=== PATIENT | female | born 1945 | race Caucasian/White ===

== ENCOUNTER → 2019-12-20 | Day surgery (SDC) | payer OTHER, MEDICARE ==
--- NOTE | 2019-12-22 13:40 | OP ---
DATE OF OPERATION: 12/20/2019 PREOPERATIVE DIAGNOSIS: Left breast mass 12 o'clock retroareolar. POSTOPERATIVE DIAGNOSIS: Left breast mass 12 o'clock retroareolar. PROCEDURE: Left breast ultrasound-guided core biopsy with clip placement. ANESTHESIA: Local. ATTENDING SURGEON: Liv Gold MD ESTIMATED BLOOD LOSS: Minimal. COMPLICATIONS: None. PROCEDURE: Patient was made aware of the risks and benefits of the procedure and consented. Under sterile conditions with 2% lidocaine for local anesthesia, a small armando was made in the skin. Using a 13-gauge suction biopsy device under ultrasound guidance multiple cores were obtained and submitted to Pathology. Likewise, under ultrasound guidance a bow tie clip was placed into the biopsy region. Well tolerated by patient. Steri-Strip and a sterile bandage were applied. Will contact her with the results. LIV GOLD M.D. CANDI/[id number]
--- NOTE | 2019-12-23 15:13 | PATH ---
Surgical Pathology Report Patient Name: JORY BORGES [facility]. Rec. #: [id number] /Age/Gender: 1945 (Age: 74) / F Account: [id number] Location: [facility] Taken: 12/20/2019 Received: 12/20/2019 Reported: 12/23/2019 Physicians: Lianna Beasley M.D. Specimen(s) Received LEFT BREAST CORE BIOPSY 12 NRA Clinical History Nonpalpable lesion Ultrasound findings: Highly suspicious/malignant Final Diagnosis BREAST, LEFT, 12:00, RETRO, CORE BIOPSY: BENIGN BREAST TISSUE SHOWING SCLEROSED FIBROADENOMA. Electronically Signed Mary Anne Serrano M.D. Gross Description Received in formalin labeled "left breast biopsy 12:00 retro," is a 1.7 x 1.0 x 0.2 cm aggregate of multiple ruffin-yellow, irregular to cylindrical portions of fibroadipose tissue. The formalin is filtered and the specimen is entirely submitted in one cassette. Time to formalin fixation: < 1 minute Total formalin fixation time: Approximately 6 hours. /12/20/2019 saudi/12/20/2019
== END | disposition home or self-care (01) ==
LOC: FRADUS-SUR 14:52
PROVIDERS: ATTEND Surgery Surgical Oncology
PROC: 0HBU3ZX Excision of Left Breast, Percutaneous Approach, Diagnostic (ICD-10-PCS; principal; 2019-12-20)
DX: N63.25 Unspecified lump in the left breast, overlapping quadrants (principal); D24.2 Benign neoplasm of left breast
CPT/HCPCS: 19083; 87899; 88305-TC; A4648